=== PATIENT | male | born 1970 | race Caucasian/White ===

== ENCOUNTER 2017-11-11 09:41 | Emergency (ER) | payer OTHER ==
[~2017-11-11] VITALS: Ht 177.8 cm; Wt 136.1 kg
[~2017-11-11 09:41] MED LIST: ALPR.25; Allegra-D 24 H1 EACH PO; BUSP5 PO; CIPR500 PO; CLON1 PO; CRUTCH4 USE; CYCL10 PO; Flonase 0.05% N16 GM; HYDACE5 PO; IBUP400 PO; LISI5 PO; METR500 PO; Percocet 5-3251 EACH PO; QUET100 PO; QUET200; RXHYDACE PO; Robaxin500 MG PO; SERT50 PO; TELM40 PO; TRAM50 PO
[2017-11-11] MEDS ORDERED: LISI5 PO (11:40)
[2017-11-11] MEDS ORDERED: Seroquel100 MG PO (11:40)
[2017-11-11] MEDS ORDERED: DULO60 PO (11:40)
[2017-11-11] MEDS ORDERED: ALPR.25 PO (11:41)
[2017-11-11] MEDS ORDERED: PROP10 PO (11:42)
[2017-11-11 12:46] LABS: BASOPHILS ABSOLUTE AUTO 0.05 K/mm3 (0.00-0.23); BASOPHILS PERCENT AUTO 1 % (0-2); EOSINOPHILS ABSOLUTE AUTO 0.12 K/mm3 (0.00-0.68); EOSINOPHILS PERCENT AUTO 2 % (0-6); Hemoglobin 11.1 g/dL (13.5-17.5); IMMATURE GRAN ABSOLUTE AUTO 0.02 K/mm3 (0.00-0.10); IMMATURE GRAN PERCENT AUTO 0 % (0-1); LYMPHOCYTES PERCENT AUTO 24 % (21-46); MONOCYTES ABSOLUTE AUTO 0.82 K/mm3 (0.16-1.47); MONOCYTES PERCENT AUTO 10 % (4-13); Mean Corpuscular HGB 26.1 pg (26.0-34.0); Mean Corpuscular HGB Conc 31.7 g/dL (31.5-36.5); Mean Corpuscular Volume 82 fL (80-100); Mean Platelet Volume 9.7 fL (9.1-12.4); NEUTROPHILS ABSOLUTE AUTO 5.09 K/mm3 (1.96-9.15); NEUTROPHILS PERCENT AUTO 64 % (41-73); Platelet Count 240 K/mm3 (150-400); RDW Coefficient Variation 14.9 % (11.7-14.2); Red Blood Cell Count 4.26 M/mm3 (4.30-5.90)
[2017-11-11 13:13] LABS: Alanine Aminotransfer (ALT/SGP 67 U/L (12-78); Albumin, Blood 3.4 g/dL (3.4-5.0); Albumin/Globulin Ratio 0.8 (0.8-1.8); Alk Phos 79 U/L (50-136); Anion Gap 5 mmol/L (6-16); Aspartate Aminotrans (AST/SGOT 66 U/L (12-37); Bilirubin, Total 0.5 mg/dL (0.1-1.0); Blood Urea Nitrogen 13 mg/dL (8-24); Bun/Creatinine Ratio 10.1 (12.0-20.0); CO2, Blood 30 mmol/L (21-32); Calcium, Blood 8.7 mg/dL (8.5-10.1); Chloride, Blood 103 mmol/L (98-108); Creatinine, Blood 1.29 mg/dL (0.60-1.20); Globulin, Blood 4.3 g/dL (2.2-4.0); Glomerular Filtration Rate >60 (60-); Glucose, Blood 91 mg/dL (70-99); Potassium, Blood 3.7 mmol/L (3.5-5.5); Sodium, Blood 138 mmol/L (136-145); Total Protein, Blood 7.7 g/dL (6.4-8.2)
[2017-11-11] MEDS ORDERED: Norco 5-325 Ta1 EACH PO (14:40)
[2017-11-11] MEDS ORDERED: HYDACE25S PR (14:40)
[2017-11-11] MEDS ORDERED: Zofran Odt4 MG SL (14:40)
== END 2017-11-11 14:57 | disposition home or self-care (01) ==
LOC: ER 09:41
PROVIDERS: Emergency Medicine
DX: K64.9 Unspecified hemorrhoids (principal); K57.30 Diverticulosis of large intestine without perforation or abscess without bleeding; F41.9 Anxiety disorder, unspecified; I10 Essential (primary) hypertension; F17.290 Nicotine dependence, other tobacco product, uncomplicated; Z88.8 Allergy status to other drugs, medicaments and biological substances; Z79.899 Other long term (current) drug therapy
CPT/HCPCS: 36415; 74177; 80053; 85025; 96361; 96374; 96375; 99283-25; J2405; J3010; J7030; Q9967

== ENCOUNTER 2019-05-27 00:34 | Inpatient (IN) | payer OTHER ==
[~2019-05-27] VITALS: Ht 175.3 cm; Wt 122.2 kg
[~2019-05-27 00:34] MED LIST changes: +ALPR.25 PO; +CHLO25B; +DULO60 PO; +HYDACE25S PR; +Norco 5-325 Ta1 EACH PO; +PROP10 PO; +Seroquel100 MG PO; +Zofran Odt4 MG SL
[2019-05-27 00:51] LABS: BASOPHILS ABSOLUTE AUTO 0.06 K/mm3 (0.00-0.23); BASOPHILS PERCENT AUTO 1 % (0-2); EOSINOPHILS ABSOLUTE AUTO 0.17 K/mm3 (0.00-0.68); EOSINOPHILS PERCENT AUTO 2 % (0-6); Hematocrit 35.8 % (37.0-53.0); Hemoglobin 11.1 g/dL (13.5-17.5); IMMATURE GRAN ABSOLUTE AUTO 0.03 K/mm3 (0.00-0.10); IMMATURE GRAN PERCENT AUTO 0 % (0-1); LYMPHOCYTES ABSOLUTE AUTO 2.15 K/mm3 (0.84-5.20); LYMPHOCYTES PERCENT AUTO 20 % (21-46); MONOCYTES ABSOLUTE AUTO 0.84 K/mm3 (0.16-1.47); MONOCYTES PERCENT AUTO 8 % (4-13); Mean Corpuscular HGB 25.6 pg (26.0-34.0); Mean Corpuscular Volume 83 fL (80-100); Mean Platelet Volume 9.9 fL (9.1-12.4); NEUTROPHILS PERCENT AUTO 69 % (41-73); Platelet Count 282 K/mm3 (150-400); RDW Coefficient Variation 14.9 % (11.7-14.2); RDW Standard Deviation 45.3 fL (35.1-46.3); Red Blood Cell Count 4.34 M/mm3 (4.30-5.90); White Blood Cell Count 10.55 K/mm3 (4.00-11.30)
[2019-05-27 01:11] LABS: Alanine Aminotransfer (ALT/SGP 14 U/L (12-78); Albumin/Globulin Ratio 0.9 (0.8-1.8); Alk Phos 66 U/L (50-136); Anion Gap 5 mmol/L (6-16); Aspartate Aminotrans (AST/SGOT 10 U/L (12-37); Bilirubin, Total 0.3 mg/dL (0.1-1.0); Blood Urea Nitrogen 12 mg/dL (8-24); CO2, Blood 27 mmol/L (21-32); Calcium, Blood 8.1 mg/dL (8.5-10.1); Chloride, Blood 110 mmol/L (98-108); Ethanol (Alcohol), Blood, Med <3 mg/dL; Globulin, Blood 3.4 g/dL (2.2-4.0); Glomerular Filtration Rate >60 (60-); Glucose, Blood 139 mg/dL (70-99); Potassium, Blood 3.6 mmol/L (3.5-5.5); Salicylate <1.7 mg/dL (2.8-20.0); Sodium, Blood 142 mmol/L (136-145); Thyroxine (T4) 6.8 ug/dL (4.5-12.1); Total Protein, Blood 6.4 g/dL (6.4-8.2)
[2019-05-27 01:30] LABS: Acetaminophen, Random <2.0 ug/mL (10.0-30.0)
--- NOTE | 2019-05-27 04:00 | NUR ---
ASSUME CARE: ADMIT 48 YEAR OLD MALE TO ICU [address] LUCHO LOVE VIA ER. TRANSFER PT TO BED USING SLIDER SHEET. LUNGS CLEAR UPPER LOBES DISTANT SOUNDS IN THE BASES SNORING RESPIRATIONS SPO2 95-98% ABDOMEN SOFT WITH BOWEL SOUNDS FOUR QUADS. ATTEMPT TO VOID. URINAL PLACED UNSUCCESSFUL ATTEMPTS. CONTINUE TO MONITOR AND REPORT CHANGE IN PATIENT CONDITION
--- NOTE | 2019-05-27 04:16 | NUR ---
WHENAROOUSED WITH STERNAL RUB AND ASKED IF STILL WANTING TO HARM SELF SCREAMS NO INFORMED PT OF NEED TO ANSWER QUESTIONS FOR ADMIT SCREAMS" NO DAMMIT I SAID NO" RETURNS TO SLEEP IMMEDIATLY. REFUSES TO RESPOND VERBALY AFTER SEVERAL ATTEMPTS TO AROUSE WITH STERNAL RUB. UNABLE TO STAY AWAKE TO ANSWER QUESTIONS,
[2019-05-27 04:33] LABS: Source, Urine Clean Catch
[2019-05-27 04:36] LABS: Bilirubin, Urine Neg (Neg); Blood, Urine Neg (Neg); Glucose Qualitative, Urine Neg (Neg); Ketones, Urine Neg (Neg); Leukocyte Esterase, Urine 1+ (Neg); Nitrite, Urine Neg (Neg); Protein, Urine Neg (Neg); Specific Gravity, Urine 1.005 (1.003-1.022); Urobilinogen, Urine NORM (Normal)
[2019-05-27 04:39] LABS: Appearance, Urine Clear (Clear); Color, Urine Yellow (P-Yellow)
[2019-05-27 04:44] LABS: Bacteria Mod /hpf; Mucus Light (0-Heavy); Red Blood Cells, Urine 0-2 /hpf (0-2); Squamous Epithelial Cells Mod /hpf (Few)
[2019-05-27 04:50] LABS: U Amphetamine Screen DETECTED; U Barbituate Screen Not Detected; U Benzodiazapine Screen DETECTED; U Buprenorphine Screen Not Detected; U Cannabinoids Screen Not Detected; U Cocaine Screen Not Detected; U Methadone Screen Not Detected; U Methamphetamine Screen DETECTED; U Opiates Screen Not Detected; U Phencyclidine Screen Not Detected
[2019-05-27 04:51] LABS: U Oxycodone Screen Not Detected; U Propoxyphene Screen Not Detected
--- NOTE | 2019-05-27 07:15 | NUR ---
ASSUMED CARE - VINEET WU Assumed care of pt at 0700. Pt in high risk suicide precautions. Pauline/New BAL in room at beginning of shift. Pt got out of bed, agitated and irritable. Stated he had to use "the bathroom". This RN in room to assist pt to commode. Pt not following any directions due to concrete mentation and agitation. Pt not safely mobilizing around room, unsteady gait. Pt pulls off heart monitor leads and continuous oximeter. Pulls out IV from arm. Unreceptive to verbal reorientation. Pt escalating and not allowing staff to safely assist pt to use commode. Vineet wu called. Pt voided urine into comode and led back to bed by security.
--- NOTE | 2019-05-27 08:00 | NUR ---
SUICIDE REASSESSMENT Unable to complete. Pt is not alert enough for reassessment at this time. When pt awakens, pt does not follow commands and does not answer all questions appropriately. Pt agitated and not cooperative. Will continue to reassess.
--- NOTE | 2019-05-27 08:30 | NUR ---
CALL PLACED TO DR SANTILLAN Provider notified of aaron wu. Provider aware that pt is now in TAT cuffs to all extremities due to impulsive actions, fall risk, not following directions. Will continue to reassess need for restraints.
[2019-05-27 09:33] LABS: Alanine Aminotransfer (ALT/SGP 12 U/L (12-78); Albumin, Blood 2.9 g/dL (3.4-5.0); Albumin/Globulin Ratio 0.8 (0.8-1.8); Alk Phos 72 U/L (50-136); Anion Gap 4 mmol/L (6-16); Aspartate Aminotrans (AST/SGOT 7 U/L (12-37); Bilirubin, Total 0.6 mg/dL (0.1-1.0); Blood Urea Nitrogen 9 mg/dL (8-24); Bun/Creatinine Ratio 9.4 (12.0-20.0); CO2, Blood 28 mmol/L (21-32); Calcium, Blood 8.9 mg/dL (8.5-10.1); Chloride, Blood 110 mmol/L (98-108); Creatinine, Blood 0.96 mg/dL (0.60-1.20); Globulin, Blood 3.6 g/dL (2.2-4.0); Glomerular Filtration Rate >60 (60-); Glucose, Blood 119 mg/dL (70-99); Sodium, Blood 142 mmol/L (136-145); Total Protein, Blood 6.5 g/dL (6.4-8.2)
--- NOTE | 2019-05-27 11:15 | NUR ---
DR SANTILLAN AT BEDSIDE Provider aware that pt is NPO due to mentation. Provider gave pt sips of water through a straw. Provider stated pt did not show signs of aspiration. Provider states pt may have sips of water if HOB is maximally elevated. Pt stated pt may not have anything other than water.
--- NOTE | 2019-05-27 12:30 | NUR ---
UPDATE GIVEN TO PORSCHE Russellidi called unit for update. Identity verified using called ID and phone number on face sheet. Questions answered to pt satisfaction. requested that Dr Meeks calls her after he sees the patient.
--- NOTE | 2019-05-27 12:55 | NUR ---
Unable to adress Safety Plan at this time due to Patient asleep and in restraints. RN informed will check back tomorrow
--- NOTE | 2019-05-27 18:18 | NUR ---
SUMMARY Pt alert, oriented to self. Upon awakening, pt often asks, "where am I". When pt awakens, his priority is voiding urine. He does not follow directions consistently. He is often agitated and yells/cusses at staff. He does not answer questions consistently. Pt does not stay awake for more than one or two minutes at a time. Pt in TAT x 4 extremities restraints for majority of shift. At 1800, restraints from bilateral ankles removed. Pt verbalizes desire for restraints to be removed. Pt verbalizes understanding that behavioral issues are a barrier to complete restraint removal at this time. SpO2 90% or greater RA. Sinus bradycardia to sinus rhythm. BP stable. Pt voids urine into urinal. No incontinent voids of urine this shift. No BM this shift. Pt remains in high risk suicide precautions with 1:1 sitter and remote monitoring. Pt unable to participate with behavioral health due to somnolence. Behavioral health states plan to revisit patient tomorrow.
--- NOTE | 2019-05-27 19:15 | NUR ---
ASSUME CARE; REPORT RECIEVED FROM [facility] OFF GOING RN. MONITOR INTACT SHOWING SINUS RHYTHM/SINUS BENJAMIN HEART RATE 50'S-60'S. LUNG SOUNDS CLEAR UPPER DISTANT IN THE BASES. ABDOMEN SOFT WITH BOWEL SOUNDS FOUR QUADS. VOIDS KIANA URINE PER URINAL. ONT TO ONE SITTER PRESENT SECONDARY TO JOSE RISK SUCIUDE IDEATION . REST QUIETLY AWAKENS BRIEFLY TO VERBAL STIMULI HOWEVER FALLS ASLEEP IMMEDIATLY FREQUENT REQUEST FOR WATER HOWEVER RETURNS TO SLEEP BEFOR WATER CAN BE OFFERED. REMAINS IN TAT WRIST RESTRAINTS. WHEN AWAKE YELLS AND CURSES AT STAFF. NOT COOPERATIVE TO CARES. XONTINUE TO MONITOR AND REPORT CHANGE IN PATIENT CONDITION
--- NOTE | 2019-05-27 20:00 | NUR ---
AROUSES TO VERBAL AND TACTILE STIMULI ANSWERSNNO TO QUEST HOWEVER ADD'this is bullshit and RETURNS TO SLEEP IMMEDIATLY. DPEES NOT FOLLOW DIRECTIONS OR IS ABLE TO STAY AWAKE/ CONTINUE TO MONITOR AND REPORT CHANGE IN PATIEENT CONDITION
--- NOTE | 2019-05-27 21:30 | NUR ---
INCREASING AGITATION. AWAKENS SCREAMING AND CURSING AT STAFF. REQUESTING DRINK OF WATER. ATTEMPTING TO KICK AT STAFF. SECURITY NOTIFIED FOR STANDBY AND TO COME TO BEDSIDE. PT CONTINUES TO ESCALATE ATTEMPTING TO KICK AND CURSE AT STAFF. PLACED IN TAT ANKLE RESTRAINTS, TO KEEP FROM HARMING SELF REMAINS CONFUSED NOT FOLLOWING REQUESTS. ONE TO ONE SITTER REMAINS FALLS ASLEEP AFTER RESTRAINTS PLACED. DOES NOT REMAIN AWAKE FOR MORE THAN 15 MINUTES. CONTINUE TO MONINTOR AND REPORT CHANGE IN PATIENET CONDITION
--- NOTE | 2019-05-28 06:15 | NUR ---
SHIFT SUMMARY RESTS QUIETLY WHEN UNDISTURBED MONITOR INTACT SHOWING SINUS RHYTHM HEART RATE 60'S-70'S. AWAKENS SUDDENLY WHEN NEEDS TO VOID. YELLS AND CURSES AT STAFF DEMANDING WATER AND RESTRAINTS REMMOVED. ONE TO ONE SITTER, ABDOMEN SOFT WITH BOWEL SOUNDS FOUR QUADS. VOIDS PER URINAL INCONTINENT ONCE THIS SHIFT. REMAINS IN TAT RESTRAINTS SECONDARY TO NOT FOLLOWING REQUEST INCREASING AGATITION REMAINS IN TAT 4 EXTREMITIES. CONTINUE TO MONITOR AND REPORT CHANGE IN PATIENT CONDITION.
--- NOTE | 2019-05-28 07:38 | NUR ---
Received report from Hooper. Patient awakened when assessing LW IV that is infusing LR at 150 ml/hr. He awakens ans started yelling and screaming about taking restarints off. he is un aware of time and date and how many days he has been hereHe is on RA and sats mid to upper 90's. He wears CPAP at home and has apnea when sleeping. He falls back to sleep quickly. He has sitter at door and is in tough cuffs as per last code wu. Will try to release as feel comfortable.
--- NOTE | 2019-05-28 10:28 | NUR ---
Took patient out of restraint briefly for trip to bathroom where he has small brown formed stool. He rem,ains on RA and sats mid 90%'s. HR 60 and systolic 80-110 and is asymptomatic. Katelyn from Behavioral Health by to see patient. He talked with her and started getting upset because his throat was sore and we did not get him medication immediatley. He was breifly upset when I told him to talk with respect to people instaed of yelling which made him more upset and I tlod him I was calling for throat medication. She left and he was sleeping when came back in room for medication. I asked he he was going to stay awake long enough for medication to work and he stated yes. He is drowsy and awakens very easily to verbal stimuli. He wants to be incontrol and is very agitated when he is not. He states he is not suicidal or has any thoughts of hurting himself or anyone else.
--- NOTE | 2019-05-28 11:22 | NUR ---
Interviewed patient to begin to prepare Suicide Sfety Plan. RN released an ankle restraint prior to the interview, pt remained in 1 ankle restraint during interview. Pt was cooperative but appeared to fall asleep at times. He reports he lost his job as [employer] due to "COVID", and his left him. He had stayed at "an empty apartment for the last week" He became tearful when talking about being "ashamed of how I treated my ". He did not go into detail. He was slow to anser questions, and would apper to fall asleep, then anser. He reports no preious suicid attemptes. for 7 years, and "on and off" since 1999". Has a 24 year old child". Denies alsohol and drug use. He complaained of his throat hurting. He yelled at RN when he entered for not helping him. Pt calmed down as he turned to speak to me. Reports no guns at home, and no previous treatment for mental illness. interview ended as pt fell asleep. Will return to complete Safety Plan. Katelyn Benites M.Ed., [facility]
--- NOTE | 2019-05-28 12:00 | NUR ---
Patient has been resting off and on. He has been appropriate with care but still withdrawn with care. He has refused am care. He has tolerated water without difficulty. He remains on RA and sats mid to upper 90%'s. He continues with LR at 150 ml/hr. Dr Frankel called and will be by to see him.
--- NOTE | 2019-05-28 13:15 | NUR ---
DR LINUFF HERE IN ROOM TO EVALUATE PATIENT.
--- NOTE | 2019-05-28 16:09 | NUR ---
he is now PCU status after Dr Easley came by to see him. Dr Forbes by and made Moderate risk. He continues to refuse am care. He has been up twice to use bathroom and is stable ambulating short distances. He was tearful when asking about talking with step daughter on phone and I passed a message off to him from seperated telling him that she hopes he is doing better and seeks help. He stated his " could kiss his ass" He has been out of restraints since noo on oder but started trail at 1100 and removed order. VSS See EMR. He remains on LR at 150 ml/hr.
--- NOTE | 2019-05-28 18:39 | NUR ---
Patient has been mostly sleeping. He denies suicdal idealations. He remains on RA and sats upper 90%'s. He is withdrawn and depressed after Dr Frankel had conversation and he understands that he may be here several more day and may start looking for place to commit short term, but patient states it was all a mistake, although he did video. He really wants to contact step daughter and i told him no phone calls yet and seperated stated she does not want him to call her. He is upset he is not allowed phone calls in or out. Last time he was up allowed him to have his underwear. He is currently sleeping and awakens easily to verbal stimuli. VSS. He continues on LR at 150 ml/hr.
--- NOTE | 2019-05-28 23:18 | NUR ---
START OF SHIFT NOTE: BEDSIDE REPORT FROM TWILA PITTMAN. PT AWAKNED EASILY AND WAS THANKFUL TO DAY RN. VSS. PT ON RA. LS CLEAR T/O. SATS REMAIN 99-100% ASLEEP OR AWAKE. PT USES CALL LIGHT APPROPRIATELY BUT IS TEARFUL WHEN AWAKE STATING, "I MISS MY ", AND "SHE LEFT US ALL FOR ANOTHER MAN", WHEN TOLD THAT CALLED AND WAS UPDATED, PT STATED, "GREAT, SHE CALLED FROM ANOTHER MAN'S HOME". PT WAS GIVEN OPORTUNITY TO [facility] AND [facility]. PT THEN, LAYED BACK INTO BED AND FELL ASLEEP. PT CURRENTLY STILL SLEEPING. VSS.
--- NOTE | 2019-05-29 03:10 | NUR ---
UPDATE: PT SLEEPING MOST OF NOC. VSS. PT AWAKENS EASILY TO RN AT BEDSIDE. PT REQUESTED COOKIES AND MILK BUT WAS HAPPY WITH APPLE JUICE. PT SPEECH CLEAR. PT PLEASANT AND APPRECIATIVE. WILL CONTINUE TO MONITOR.
--- NOTE | 2019-05-29 03:12 | NUR ---
PT REFUSING FINGER STICKS AND LAB DRAW A THIS TIME. PT STATED, "I DON'T WANT MY BLOOD TAKEN", "I DON'T WANT TO BE POKED". PT THEN ON SIDE AND FELL ASLEEP.
--- NOTE | 2019-05-29 04:40 | NUR ---
DR. BEASLEY NOTIFIED: PT 0400 VITALS C/ BP 60'S/40'S. 80'S/50'S AFTER 250 FLUID BOLUS CHALLENGE. SEE UPCOMING ORDERS.
[2019-05-29 08:09] LABS: BASOPHILS ABSOLUTE AUTO 0.03 K/mm3 (0.00-0.23); BASOPHILS PERCENT AUTO 0 % (0-2); EOSINOPHILS ABSOLUTE AUTO 0.15 K/mm3 (0.00-0.68); EOSINOPHILS PERCENT AUTO 2 % (0-6); Hematocrit 35.8 % (37.0-53.0); IMMATURE GRAN ABSOLUTE AUTO 0.01 K/mm3 (0.00-0.10); IMMATURE GRAN PERCENT AUTO 0 % (0-1); LYMPHOCYTES PERCENT AUTO 22 % (21-46); MONOCYTES ABSOLUTE AUTO 0.72 K/mm3 (0.16-1.47); MONOCYTES PERCENT AUTO 9 % (4-13); Mean Corpuscular HGB 25.1 pg (26.0-34.0); Mean Corpuscular HGB Conc 30.7 g/dL (31.5-36.5); Mean Corpuscular Volume 82 fL (80-100); Mean Platelet Volume 9.9 fL (9.1-12.4); NEUTROPHILS ABSOLUTE AUTO 5.24 K/mm3 (1.96-9.15); NEUTROPHILS PERCENT AUTO 67 % (41-73); Platelet Count 240 K/mm3 (150-400); RDW Coefficient Variation 14.7 % (11.7-14.2); RDW Standard Deviation 43.8 fL (35.1-46.3); Red Blood Cell Count 4.38 M/mm3 (4.30-5.90); White Blood Cell Count 7.85 K/mm3 (4.00-11.30)
--- NOTE | 2019-05-29 08:14 | NUR ---
Received report from Estela PITTMAN. patient stated earlier he did not want labs or meds. I went in room as he asked a question about how long he was going to be here and I explained up to 7 days from admission as he was on a 2 doctor hold and explained again what that was. He statrted to get loud and I calmed him down and told him he could tell his side to Dr Frankel and see what he thinks about when and if he can be discharged and when he can call his family. He remains on RA and sats upper 90%'s VSS, See EMR. I called Dr Easley and asked is he could be off monitor as patient was getting tangled in lines and had to awaken to fix frequently. He stated OK to be off monitor and VS Q4. Lab came by and talked him in to having labs do so that they may be able to treat him better and he agreed. He also stated that he would try breakfast. He apoligized for being ans"asshole " yesterday and I told him it was OK as long as he was feeling better. he denies any suicidal idealations or thoughts of hurting anyone else and hestated "NO".
[2019-05-29 08:26] LABS: Alanine Aminotransfer (ALT/SGP 12 U/L (12-78); Albumin, Blood 2.8 g/dL (3.4-5.0); Albumin/Globulin Ratio 0.8 (0.8-1.8); Alk Phos 74 U/L (50-136); Anion Gap 5 mmol/L (6-16); Aspartate Aminotrans (AST/SGOT 7 U/L (12-37); Bilirubin, Total 0.7 mg/dL (0.1-1.0); Blood Urea Nitrogen 10 mg/dL (8-24); Bun/Creatinine Ratio 8.3 (12.0-20.0); CO2, Blood 28 mmol/L (21-32); Calcium, Blood 8.9 mg/dL (8.5-10.1); Chloride, Blood 109 mmol/L (98-108); Creatinine, Blood 1.21 mg/dL (0.60-1.20); Globulin, Blood 3.4 g/dL (2.2-4.0); Glomerular Filtration Rate >60 (60-); Glucose, Blood 93 mg/dL (70-99); Potassium, Blood 3.1 mmol/L (3.5-5.5); Sodium, Blood 142 mmol/L (136-145); Total Protein, Blood 6.2 g/dL (6.4-8.2)
--- NOTE | 2019-05-29 09:48 | NUR ---
Placed breakfast at bedside and patient stated he will try to eat. Comapss in room currently, behavior Health by and stated she will be back to see him. He has been cooperative with care. He refused Lovenox this am. He remains off monitor and is PCU status.
--- NOTE | 2019-05-29 12:16 | NUR ---
Safety Plan complete today. Pt states he is "over it" now, and does not want to kill himself. He says he is bipolar, and was Manic when he took the OD. He states he has appontments with his PCP, Rachel, that diagnosed him with Bipolar, and an appoinment with [facility] at [facility]. He has friends in [facility] [place], and states he may move there at some point.
--- NOTE | 2019-05-29 14:54 | NUR ---
Katelyn PITTMAN was by to see patient and he was calm throughout process and latewr Dr Frankel was by and patient became very frustrated when he was told he was going to have to stay. I went in room shortly after and had talk with patient and he became calm. We got permission for him to call and she called back about 20 minutes later and he talked for about 30 minutes and was very calm afterwards. He has been very cooperative and has full understanding of his current consequences. VSS. Sats 98% on RA.
--- NOTE | 2019-05-29 17:38 | NUR ---
PT TRANSFERED PT TRANSFERED TO 344. REPORT RECIEVED FROM TWILA FORREST RN. THIS RN COMFIRMED WITH REMOT MONITORS THAT PT IS CLEARLY VIEWED. PT CURRENTLY IN ROOM TALKING TO HIS FRIEND ON THE PHONE. SI ENVIRONMENT ASSESSMENT COMPLETED. PT STATES HE IS COMFORTABLE AT THIS TIME. AND DENIES ANY NEED AT THIS TIME. WILL CONTINUE TO MONITOR UNTIL TURNOVER IS COMPLETE.
--- NOTE | 2019-05-29 17:41 | NUR ---
Gave report to [facility] 344 RN . Patient transfered to wheelchair and was taken to room. He was pleasant and cooperative on transfer and thanked me for care/ All his belongings, cloths, keys, watch and he carried cell phone. He ambulated from chair to bed and [facility] floor nurse and aid introduced themselves. He transfered on RA without difficulty.
--- NOTE | 2019-05-30 04:11 | NUR ---
SHIFT SUMMARY PT HAS HAD NO ACUTE CHANGES THIS SHIFT, A&O, PLEASANT & COOPERATIVE W/CARE, CELL PHONE PLUGGD IN AT DESK FOR THE NIGHT, ASSURED PT IT WLD BE RETURNED IN AM, PT UNABLE TO TOLERATE KCL INFUSION AND REFUSED TO ALLOW RN TO ADJUST CONCURRENT DRIP (STATED HE WANTED IV OUT), CALLED MD & REC PO ORDER, PT APPEARS COMFORTABLE @ THIS TIME, NO OTHER C/O ANY KIND, CALL LIGHT IN REACH, WILL CONT TO MONITOR UNTIL REPORT GIVEN TO DAY RN.
[2019-05-30 05:11] LABS: Anion Gap 6 mmol/L (6-16); Blood Urea Nitrogen 15 mg/dL (8-24); CO2, Blood 27 mmol/L (21-32); Chloride, Blood 109 mmol/L (98-108); Creatinine, Blood 1.25 mg/dL (0.60-1.20); Glomerular Filtration Rate >60 (60-); Glucose, Blood 105 mg/dL (70-99); Potassium, Blood 3.3 mmol/L (3.5-5.5); Sodium, Blood 142 mmol/L (136-145)
--- NOTE | 2019-05-30 07:30 | NUR ---
VERIFIED REMOTE MONITORING THIS RN VERIFIED WITH REMOTE MONITOR SUSY THAT CAMERA IS ON.
--- NOTE | 2019-05-30 13:00 | NUR ---
PATIENT REQUESTED FOR HOUSE FORTE, CAR FORTE, AND FORTE FOB TO BE SENT DOWN FOR PRINCIPAL PLANNER BY HIS DAUGHTER.
--- NOTE | 2019-05-30 16:22 | NUR ---
Shift Summary A/Ox4, compliant with all safety precautions in place. Patient had a supervised shower and bathroom breaks. SBP remains in the 90's. Patient denies symptoms of hypotension (blurry vision, dizziness, lightheadedness). Independent with ADL's and uses call light appropriately. When in the shower, this RN could hear patient mumbling to himself, but could not make out what patient was mumbling. Patient continues to deny suicidal ideations or any plans for such action. Has been on the phone frequently t/o day with friends and . No signs of agitation or agression noted. Will continue to monitor.
--- NOTE | 2019-05-30 19:06 | NUR ---
HOUSE AND CAR FORTE ALONG WITH FORTE FOB ARE BACK IN PATIENT'S ROOM.
--- NOTE | 2019-05-31 05:07 | NUR ---
SHIFT SUMMARY PT HAS HAD NO ACUTE CHANGES THIS SHIFT, NO C/O ANY KIND, SBP ABOVE 100 THIS SHIFT, PT HAS BEEN APPROPIATE & COOPERATIVE W/CARE, SLEPT T/O NIGHT, SLEEPING AT THIS TIME, CALL LIGHT IN REACH, WILL CONT TO MONITOR UNTIL REPORT GIVEN TO DAY RN.
[2019-05-31 05:11] LABS: Alanine Aminotransfer (ALT/SGP 13 U/L (12-78); Albumin/Globulin Ratio 0.8 (0.8-1.8); Alk Phos 71 U/L (50-136); Anion Gap 5 mmol/L (6-16); Aspartate Aminotrans (AST/SGOT 11 U/L (12-37); Bilirubin, Total 0.4 mg/dL (0.1-1.0); Blood Urea Nitrogen 10 mg/dL (8-24); Bun/Creatinine Ratio 9.4 (12.0-20.0); CO2, Blood 26 mmol/L (21-32); Calcium, Blood 8.9 mg/dL (8.5-10.1); Chloride, Blood 111 mmol/L (98-108); Creatinine, Blood 1.06 mg/dL (0.60-1.20); Globulin, Blood 3.8 g/dL (2.2-4.0); Glomerular Filtration Rate >60 (60-); Glucose, Blood 123 mg/dL (70-99); Potassium, Blood 3.6 mmol/L (3.5-5.5); Sodium, Blood 142 mmol/L (136-145); Total Protein, Blood 6.8 g/dL (6.4-8.2)
--- NOTE | 2019-05-31 07:00 | NUR ---
REMOTE MONITOR VERIFIED WITH PITO THAT REMOTE MONITORING IS ON FOR THIS PATIENT.
--- NOTE | 2019-05-31 08:08 | NUR ---
PATIENT STARTED MORNING OFF FEELING IRRITATED STATING HE WANTS TO GO HOME BECAUSE HIS BP IS IMPROVING AND HE KNOWS HE "FUCKED UP" WITH WHAT HE DID. "THE WORLD IS GOING AND I'M STUCK IN HERE."
--- NOTE | 2019-05-31 08:12 | NUR ---
PATIENT DENIES HAVING ANY PLANS TO KILL HIMSELF OR ANY SUICIDAL THOUGHTS.
[2019-05-31] MEDS ORDERED: CHLO50 PO (14:42)
--- NOTE | 2019-05-31 14:54 | NUR ---
Discharge Summary A/Ox4, patient discharging to home. Reviewed discharge paperwork and educational materials with patient. This RN stressed the importance of staying away from illicit drugs per Jostin's order. Discharge med was called in to [facility] pharmacy. [facility] ran out of [facility] so they will forward prescription to another pharmacy and call patient with updates. Personal belongings sent home, patient transported by daughter and escorted out by SALES DEVELOPMENT EXECUTIVE. Patient did not have any questions at this time.
== END 2019-05-31 15:02 | disposition home or self-care (01) | DRG 917 ==
LOC: ER 00:34 → ICUW 00:35 → MEDS 05-29 17:35
PROVIDERS: Emergency Medicine; Internal Medicine; ADMIT Internal Medicine
DX: T42.4X2A Poisoning by benzodiazepines, intentional self-harm, initial encounter (principal); G92 Toxic encephalopathy; F32.3 Major depressive disorder, single episode, severe with psychotic features; F19.90 Other psychoactive substance use, unspecified, uncomplicated; I10 Essential (primary) hypertension; I95.89 Other hypotension; F41.9 Anxiety disorder, unspecified; E87.6 Hypokalemia; G47.30 Sleep apnea, unspecified; I95.9 Hypotension, unspecified; F17.290 Nicotine dependence, other tobacco product, uncomplicated
CPT/HCPCS: 36415; 80048; 80053; 81001; 84436; 85025; 87086; 93005; 93010; 96361; 96372; 96374; 96375; 99285-25; C9113; G0378; G0480; J1650; J2310; J3480; J7030; J7040; J7120

== ENCOUNTER 2019-06-23 05:36 | Inpatient (IN) | payer OTHER ==
[~2019-06-23] VITALS: Ht 185.4 cm; Wt 121.6 kg
[~2019-06-23 05:36] MED LIST changes: +CHLO50 PO
[2019-06-23 05:58] LABS: BASOPHILS ABSOLUTE AUTO 0.06 K/mm3 (0.00-0.23); BASOPHILS PERCENT AUTO 1 % (0-2); EOSINOPHILS ABSOLUTE AUTO 0.13 K/mm3 (0.00-0.68); EOSINOPHILS PERCENT AUTO 2 % (0-6); Hematocrit 34.9 % (37.0-53.0); Hemoglobin 10.9 g/dL (13.5-17.5); IMMATURE GRAN ABSOLUTE AUTO 0.08 K/mm3 (0.00-0.10); IMMATURE GRAN PERCENT AUTO 1 % (0-1); LYMPHOCYTES ABSOLUTE AUTO 1.76 K/mm3 (0.84-5.20); LYMPHOCYTES PERCENT AUTO 21 % (21-46); MONOCYTES ABSOLUTE AUTO 0.59 K/mm3 (0.16-1.47); MONOCYTES PERCENT AUTO 7 % (4-13); Mean Corpuscular HGB 24.8 pg (26.0-34.0); Mean Corpuscular HGB Conc 31.2 g/dL (31.5-36.5); Mean Corpuscular Volume 79 fL (80-100); Mean Platelet Volume 9.3 fL (9.1-12.4); NEUTROPHILS ABSOLUTE AUTO 5.95 K/mm3 (1.96-9.15); NEUTROPHILS PERCENT AUTO 70 % (41-73); Platelet Count 276 K/mm3 (150-400); RDW Coefficient Variation 14.4 % (11.7-14.2); RDW Standard Deviation 41.2 fL (35.1-46.3); White Blood Cell Count 8.57 K/mm3 (4.00-11.30)
[2019-06-23 06:13] LABS: Acetaminophen, Random <2.0 ug/mL (10.0-30.0); Alanine Aminotransfer (ALT/SGP 12 U/L (12-78); Albumin, Blood 3.1 g/dL (3.4-5.0); Albumin/Globulin Ratio 0.8 (0.8-1.8); Alk Phos 84 U/L (50-136); Anion Gap 9 mmol/L (6-16); Aspartate Aminotrans (AST/SGOT 8 U/L (12-37); Bilirubin, Total 0.4 mg/dL (0.1-1.0); Blood Urea Nitrogen 8 mg/dL (8-24); Bun/Creatinine Ratio 7.9 (12.0-20.0); CO2, Blood 24 mmol/L (21-32); Calcium, Blood 8.8 mg/dL (8.5-10.1); Chloride, Blood 110 mmol/L (98-108); Creatinine, Blood 1.01 mg/dL (0.60-1.20); Ethanol (Alcohol), Blood, Med <3 mg/dL; Globulin, Blood 3.7 g/dL (2.2-4.0); Glomerular Filtration Rate >60 (60-); Glucose, Blood 127 mg/dL (70-99); Potassium, Blood 3.2 mmol/L (3.5-5.5); Salicylate <1.7 mg/dL (2.8-20.0); Sodium, Blood 143 mmol/L (136-145); Total Protein, Blood 6.8 g/dL (6.4-8.2)
--- NOTE | 2019-06-23 08:34 | NUR ---
PT ADMITTED TO ICU AT 0820 FOR INTENTIONAL OD ON SEROQUEL AND BP MEDS. PT LETHARGIC. WHEN AROUSES PT IRRITABLE, ANGRY, YELLS, AND USES PROFANITY. PT IS UNCORDINATED WITH SLURRED SPEECH. PT IS ORIENTED, DENIES FEELING SUICIDAL. PT YELLS DEMANDS AT STAFF THEN QUICKLY FALLS BACK TO SLEEP. PT HEART RATE IN 60'S. SATS 97% ON RA, LUNGS CLEAR. PT HYPOTENSIVE W BP TRENDING DOWN, PT MAY REQUIRE LINE AND PRESSORS. ALL ITEMS REMOVED FROM ROOM. CAMERA ON, SITTER TO BE AT BEDSIDE SHORTLY. WILL CALL HOSP REGARDING BP.
--- NOTE | 2019-06-23 08:47 | NUR ---
DR YANG CALLED AND GIVEN FULL UPDATE. PICC LINE TO BE PLACED.
--- NOTE | 2019-06-23 10:46 | NUR ---
DR HOPKINS IS PT'S PROVIDER PT IS FROM [place]. DR HOPKINS CALLED AND GIVEN UPDATE AND WAS IN UNIT TO SEE PT SHORTLY AFTER. NS BOLUS (3RD LITER) STARTED FOR HYPOTENSION 70/38. PICC ORDERED, PT AGREES TO PICC. PICC PLACED TO LAMAR W/O DIFFICULTY. LEVOPHED STARTED AND TITRATED UP TO 12MCG OVER 10MIN TO KEEP UP MAP>65. PT CONT TO BE VOLATILE WITH IMPULSIVE AND SOMEWHAT EXPLOSIVE MOVEMENT WHEN AROUSED. PT CONT TO USE PROFANITY AND YELL WHEN AWAKE. HEART RATE IN 50'S. 1:1 SITTER AT BEDSIDE. 2MD HOLD INITIATED 02 PLACED AT 2L PT HAS PERIODS OF SLEEP APNEA.
[2019-06-23 11:00] LABS: Alanine Aminotransfer (ALT/SGP 12 U/L (12-78); Albumin, Blood 2.6 g/dL (3.4-5.0); Albumin/Globulin Ratio 0.8 (0.8-1.8); Alk Phos 71 U/L (50-136); Anion Gap 7 mmol/L (6-16); Aspartate Aminotrans (AST/SGOT 5 U/L (12-37); Bilirubin, Total 0.5 mg/dL (0.1-1.0); Blood Urea Nitrogen 8 mg/dL (8-24); Bun/Creatinine Ratio 8.8 (12.0-20.0); CO2, Blood 24 mmol/L (21-32); Calcium, Blood 7.7 mg/dL (8.5-10.1); Chloride, Blood 108 mmol/L (98-108); Creatinine, Blood 0.91 mg/dL (0.60-1.20); Globulin, Blood 3.2 g/dL (2.2-4.0); Glomerular Filtration Rate >60 (60-); Glucose, Blood 244 mg/dL (70-99); Potassium, Blood 3.8 mmol/L (3.5-5.5); Sodium, Blood 139 mmol/L (136-145); Total Protein, Blood 5.8 g/dL (6.4-8.2)
--- NOTE | 2019-06-23 11:47 | NUR ---
1100-PT REQUESTED THE NEED TO URINATE IN SLURRED WORDS. THEN QUICKY GOT ON ALL FOURS TRYING TO JUMP OUT OF BED AND WILDLY RIPING OFF LEADS AND ATTEMPTED TO PULL OUT PICC. VINEET CABAN CALLED, PT PLACED IN TUFF CUFFS X4 EXT. PT FELL BACK TO SLEEP AFTER RESTRAINTS PLACED. DR HOPKINS AT BEDSIDE. ORDERS TO PLACE SALCIDO. PT TOLERATED SALCIDO PLACEMET WELL; UROJET USED. 1700CC TO SALCIDO BAG. LEVOPHED DECREASED TO 10MCG, NS STARTED AT 175/HR.
[2019-06-23 12:45] LABS: Source, Urine Clean Catch
[2019-06-23 12:49] LABS: Bilirubin, Urine Neg (Neg); Blood, Urine Neg (Neg); Glucose Qualitative, Urine Neg (Neg); Ketones, Urine Neg (Neg); Leukocyte Esterase, Urine Neg (Neg); Nitrite, Urine Neg (Neg); Protein, Urine Neg (Neg); Specific Gravity, Urine 1.005 (1.003-1.022); Urobilinogen, Urine NORM (Normal)
[2019-06-23 12:50] LABS: Appearance, Urine Clear (Clear); Color, Urine Yellow (P-Yellow)
[2019-06-23 13:03] LABS: U Amphetamine Screen DETECTED; U Methamphetamine Screen DETECTED
[2019-06-23 13:04] LABS: U Barbituate Screen Not Detected; U Benzodiazapine Screen Not Detected; U Buprenorphine Screen Not Detected; U Cannabinoids Screen Not Detected; U Cocaine Screen Not Detected; U Methadone Screen Not Detected; U Opiates Screen Not Detected; U Oxycodone Screen Not Detected; U Phencyclidine Screen Not Detected; U Propoxyphene Screen Not Detected
--- NOTE | 2019-06-23 13:16 | NUR ---
PT SLEEPING RESTFULLY. LEVOPHED DECRESED TO 8MCG, PT'S MAP REMAINS >65.
--- NOTE | 2019-06-23 13:20 | NUR ---
PT'S URINE TOX POS FOR METH AND AMPHETAMINE'S, DR HOPKINS NOTIFIIED.
--- NOTE | 2019-06-23 13:40 | NUR ---
UPDATE X2 GIVEN TO POISON CONTROL.
[2019-06-23] MEDS ORDERED: CHLO25B PO (13:54)
[2019-06-23] MEDS ORDERED: LISI20 PO (13:55)
[2019-06-23] MEDS ORDERED: GABA300 PO (13:55)
--- NOTE | 2019-06-23 17:00 | NUR ---
PT SLEEPING VERY SOMULENT, APPEARS RESTFUL. LEVOPHED DECREASED TO 5MCG, MAPS >65. PT PUT OUT OVER 3L THIS SHIFT IN URINE. PT AROUSES TO A LIGHT SHAKE, ABLE TO ANSWER SOME QUESTIONS THEN FALLS QUICKLY BACK TO SLEEP. ANKLE RESTRAINTS REMOVED. WRIST RESTRAINTS LEFT ON PT'S BEHAVIOR HAS BEEN VERY LABILE AND SOMETIMES VOLATILE. 1:1 STTER REMAINS AT BEDSIDE. HEART RATE INCREASED INTO 60'S, LOW 70'S, AFEBRILE. LUNGS REMAIN CLEAR. PT HAS REMAINED ON RA FROM 1100 ON; SATS >90%.
--- NOTE | 2019-06-23 19:49 | NUR ---
SHIFT ASSESSMENT: ASSUMED CARE FROM TEDDY. PT GROGGY, BUT EASILY AROUSED. ABLE TO HAVE LUCCID APPROPRIATE CONVERSATION, BUT GETS AMPED UP QUICKLY AND STARTS YELLING AT ME. HE IS A BIT CONFUSED HAS FORGOTTEN SOME OF THE DAY TODAY. CAN'T FULLY REMEMBER WHY HE IS RESTRAINTS, PROMISES HE WON'T HURT ME OR HIMSLEF. I EXPLAINED THAT IF I AM TO TRUST HIM, HE HAS TO SHOW ME THAT HE WILL BEHAVE. PUPIL EQUAL AND REACTIVE AT 3MM BILAT. PT HAS A DIFFICULT TIME OPENING EYES FOR ME. STATES "THEY ARE SO HEAVY". LS CLEAR T/O WITH BIOX 96% ON RA. HEART SOUNDS S1 AND S2 AUSCULTATED WITH MONITOR SHOWING NSR WITH HR 66. SKIN PINK, WARM AND DRY, PPP BILAT AND STRONG. 18G IV R HAND S/L. PICC IN LAMAR WITH 3CM OUT. LEVOPHED AT 18.8CC/HR= 5MCG/MIN AND NS AT 175CC/HR. ABD R/O WITH BT X4. SALCIDO DRAINING CLEAR YELLOW URINE. PT IS 2MD HOLD WITH SITTER AT DOORWAY.
--- NOTE | 2019-06-23 22:09 | NUR ---
RESTRAINT REMOVAL: PT PLACED ON CPAP AND REQUESTED THAT HE HAVE HIS HANDS FREE TO ADJUST THE MASK IF NEEDED. PT FOLLOWING COMMANDS WITH INTERMITTENT BOUTS OF AGITATION. RESTRAINTS REMOVED. I EXPLAINED THAT IF HE TRIES TO GET OUT OF BED OR STARTS TO BECOME AGGRESSIVE THAT THEY WOULD BE PUT BACK ON. PT GAVE ME THE THUMBS UP AND STATED "OK"
[2019-06-24 03:30] LABS: BASOPHILS ABSOLUTE AUTO 0.05 K/mm3 (0.00-0.23); BASOPHILS PERCENT AUTO 1 % (0-2); EOSINOPHILS ABSOLUTE AUTO 0.09 K/mm3 (0.00-0.68); EOSINOPHILS PERCENT AUTO 1 % (0-6); Hematocrit 35.1 % (37.0-53.0); Hemoglobin 10.5 g/dL (13.5-17.5); IMMATURE GRAN ABSOLUTE AUTO 0.04 K/mm3 (0.00-0.10); IMMATURE GRAN PERCENT AUTO 0 % (0-1); LYMPHOCYTES ABSOLUTE AUTO 2.33 K/mm3 (0.84-5.20); LYMPHOCYTES PERCENT AUTO 21 % (21-46); MONOCYTES ABSOLUTE AUTO 0.73 K/mm3 (0.16-1.47); MONOCYTES PERCENT AUTO 7 % (4-13); Mean Corpuscular HGB 24.9 pg (26.0-34.0); Mean Corpuscular HGB Conc 29.9 g/dL (31.5-36.5); Mean Corpuscular Volume 83 fL (80-100); Mean Platelet Volume 9.7 fL (9.1-12.4); NEUTROPHILS ABSOLUTE AUTO 7.76 K/mm3 (1.96-9.15); NEUTROPHILS PERCENT AUTO 71 % (41-73); Platelet Count 305 K/mm3 (150-400); RDW Coefficient Variation 14.6 % (11.7-14.2); RDW Standard Deviation 44.5 fL (35.1-46.3); Red Blood Cell Count 4.22 M/mm3 (4.30-5.90)
[2019-06-24 03:43] LABS: Anion Gap 7 mmol/L (6-16); Blood Urea Nitrogen 10 mg/dL (8-24); Bun/Creatinine Ratio 8.3 (12.0-20.0); CO2, Blood 22 mmol/L (21-32); Calcium, Blood 8.4 mg/dL (8.5-10.1); Chloride, Blood 115 mmol/L (98-108); Glomerular Filtration Rate >60 (60-); Glucose, Blood 112 mg/dL (70-99); Magnesium, Blood 2.1 mg/dL (1.6-2.4); Phosphorus, Blood 3.9 mg/dL (2.5-4.9); Potassium, Blood 3.9 mmol/L (3.5-5.5); Sodium, Blood 144 mmol/L (136-145)
--- NOTE | 2019-06-24 06:55 | NUR ---
SHIFT SUMMARY: PT HAD BOUT OF AGITATION TO WHERE HE WOULD RAISE HIS VOICE AT ME BUT WOULD CALM DOWN AND APOLOGIZE ONCE I TOLD HIM I WAS TRYING TO HELP HIM. RESTRAINTS WERE REMOVED AT 2134 AND HE HAS BEEN APPROPRIATE. 2 ATTEMPTS TO HAVE BM'S AT BEDSIDE COMMODE WITHOUT SUCCESS. HIGH RISK SUICIDE WITH SITTER AT DOORWAY.
--- NOTE | 2019-06-24 09:54 | NUR ---
CARE ASSUMED ASSESSMENT COMPLETED, PT DROWSY BUT WAKES EASILY TO VOICE, ORIENTED X4, DENIES SI AT THIS TIME. SALCIDO REMOVED PER PT REQUEST. PT C/O ABD PAIN SECONDARY TO CONSTIPATION, BOWEL CARE MEDS ADMINISTERED, PT THEN HAD A SMALL SOFT BM AND A SMALL VOID POST SALCIDO REMOVAL. PT REMAINS OUT OF RESTRAINTS, IS COOPERATIVE, THOUGH INTERMITTENTLY IRRITABLE. HR 50'S SINUS, BP STABLE WITH LEVO 5MCG, WILL ATTEMPT TO TITRATE TODAY ABLE. SI PRECAUTIONS REMAIN IN PLACE, 1:1 MONITOR AT BEDSIDE.
--- NOTE | 2019-06-24 15:11 | NUR ---
UPDATE NETEZZA DEVELOPER IN TO SEE PATIENT EARLIER, PT WAS VERY ABRASIVE DURING VISIT, YELLING AND CURSING. PT CALMS QUICKLY AND GOES BACK TO SLEEP, REMAINS DROWSY BUT WAKES EASILY, SLEEPING WITH CPAP ON. PT HAD A SNACK WITHOUT DIFFICULTY, THEN ATE BITES OF LUNCH AND WENT BACK TO SLEEP. TITRATING LEVOPHED DOWN ABLE, WILL CONTINUE TO MONITOR. HIGH SUICIDE RISK PRECAUTIONS AND 1:[address]
--- NOTE | 2019-06-24 16:09 | NUR ---
UPDATE DR. IGLL IN TO SEE PATIENT, INFORMED PATIENT OF PLAN OF CARE FOR INPATIENT PSYCH, PT BECAME VERY EMOTIONAL, STATES HE NEEDS TO TAKE CARE OF HIS PERSONAL BELONGINGS AND CANNOT GO TO AN INPATIENT FACILITY, REQUESTING TO SPEAK WITH PATIENT ADVOCATE. PT ADVOCATE CALLED, MESSAGE LEFT. PT SITTING AT BEDSIDE CRYING, THIS RN IN TO SPEAK WITH PT, PT CALMED SLIGHTLY. REMAINS OUT OF RESTRAINTS, 1:1 MONITOR AT BEDSIDE.
--- NOTE | 2019-06-24 17:52 | NUR ---
UPDATE/END OF SHIFT DR. GILL IN TO ASSESS PATIENT, ORDERS FOR INPATIENT PSYCH FACILITY RECIEVED. PT AWARE OF PLAN, WAS CRYING D/T CONCERN THAT HE WAS SUPPOSED TO LEAVE TO GO TO [place] TOMORROW, DISCUSSED PLAN AND NECESSITY OF INPATIENT CARE WITH PATIENT, PT CALMED. PT REPORTS HE IS NOT SUICIDAL, THAT HE JUST WANTED TO SLEEP FOR THE ENTIRE WEEKEND UNTIL HE WAS ABLE TO GO TO [place]. CONTACTED PER PT REQUEST AND NOTIFIED OF PATIENT'S HOSPITAL ADMISSION AND PLAN OF CARE. PICC DRESSING CHANGED, PT ATE DINNER, IS NOW SLEEPING WITH BIPAP MASK ON. 1:[address], PT ON HIGH RISK SUICIDE PRECAUTIONS. LEVOPHED AT 2MCG, MAP LOW 60'S. WILL CONTINUE TO MONITOR AND REPORT TO ONCOMING SHIFT.
--- NOTE | 2019-06-24 20:00 | NUR ---
ASSUMED CARE NOTE: ASSUMED CARE OF PT AT 1900, RECEVIED REPORT FROM KHLOE PITTMAN. PT IS A/OX3. WHILE PERFORMING ASSESSMENT, PT BECAME AGITATED AND CONFRONTATIONAL. PT STOOD UP AND SCREAMED " I CAN GO PEE AND STAND UP IF I WANT TO ON MY OWN" PT WAS REMINDED OF ACCEPTABLE CONDUCT TO STAFF, PT THEN APOLOGIZED AND BEGAN TO CRY. PT STATES HE IS SAD AND DISAPPOINTED HIS LEFT HIM. THIS NURSE SAT AND SPOKE TO PATIENT REGARDING THE ISSUE. PT IS ON RA, LUNG SOUNDS CLEAR. PT IN SINUS WITH HR IN THE 80'S, 60'S WHILE SLEEPING. PT IS ON LEVOPHED 3MCG/MIN FOR LOW BP. PT HAD AN INCONTINENT BM, THAT WAS LIQUID. COLACE HELD. WILL CONTINUE TO MONITOR PT T/O SHIFT.
--- NOTE | 2019-06-25 05:51 | NUR ---
SHIFT SUMMARY: SEE PREVIOUS NOTES. TREVON HAS BEEN ON SBA SINCE 0100. VITALS SATBLE MAP ABOVE 60. BP INCREASES WHEN PT IS AWAKE, OR WHEN PT IS DOING ACTIVITY. PT HAS BEEN COOPERATIVE, AND REMAIND CALM. PT ASKED TO NOT BE AWAKENED EVERY TWO HOURS. HE WISHES TO BE ON ANOTHER UNIT, SO HE CAN USE THE PHONE MORE OFTEN. PT WAS REMINDED THAT STAFF WILL CONTINUE TO OBSERVE 1:1 SUPERVISION. PT HAS BEEN GETTING UP TO USE BEDSIDE TOILET WITH SBA. PT HAS A STEADY GAIT. WILL CONTINUE TO MONITOR PT UNTIL REPORT IS GIVEN TO ONCOMING SHIFT.
--- NOTE | 2019-06-25 07:11 | NUR ---
Received report from Irma PITTMAN. Patient laying in bed awake and able to communicate his needs. He was pleasant and cooperative with his care. He is on RA and sats mid 90%'s. He remains slightly, systolic upper 90"s and MAP 58, will re-evaluate. Has 18ga RH dressing intact and site WNL's. He also has PICC line to LAMAR, dressing intact and site WNL and is infusing NS at 75ml/hr and Levophed currently remains off. HUSSAIN. He has one to one sitter. Has urinal at bedside.
--- NOTE | 2019-06-25 10:21 | NUR ---
Patient is currently resting on CPAP 10-20 and sats mid 90%'s. [facility] health was in room with patient and he was very frustrated and yelling at times, this lasted about 30 minutes and went in room after she left and he was very calm and appropriate with communication and care and asked for me to call daughter and get some things from his apartment. Systolic remains 90-100's and HR 60's. Poison control called and stated case closed. Awaiting report from [facility] that will be taking him.
--- NOTE | 2019-06-25 11:08 | NUR ---
Interviewed patient at 0815 today. He presented as irritable and angry. He spoke loudly at times and would speak dramaticly, and make sarcastic remarks about this tech writer and doctors. He complained loudly that no on gave a " a shit" about him. He reported that the meds he was given by Dr. Meeks from his last admit "didnt work and they made me feel funny". He noted "all I wanted to do Monday night was to get some sleep"; "I even called 911 myself". "All I need to do is go to [place] like I planned tonight". He finally calmed and was able to speak about his upset with his , Kaia. "She is living in [place] with a yudi, and all I want is closure with her vefore I leave [place]". He reports taking 3 Seroquel on Monday night to try and get sleep. His plans include mvoing to [place] which is "home". He reports his friends have a place for him to stay and a job. Brief counseling interventions brought him to tears at times, regarding his rejection and hurt feelings from his of 20+ years. His adult son and daughter are getting his personal items from his apartment to keep for him until he leaves town. His daughter Clovis was called by Nurse to remind her to get several items he had forgotten to tell her about. Patient is heavily tattooed, very short haircut. He is well spoken when he calmed, and repeately talked about his and her not willing to listen to him "to gain closure with her before I leave". He reports he did not have intention of killing himself. This is 2nd interview with this patient--he was in ICU before for OD. The issue at that time was also the releationship with his . 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 He did not ngage in Suicide Safety Plan at this time. Will revisit later today to complete if he is willing.
--- NOTE | 2019-06-25 12:23 | NUR ---
Patient has been resting and when he awoke I called patient advocate to come see. She was at bedside and he got frustrated as she did not sit to talk with him. He stated to go have a seat and she said she was fine and started being rude and yelling abnd I asked her to leave until he could speak respectful. Systolic stll 90's and SB/SR in the 60's. He remains on RA and sats mid 90%'s. [facility] came by and he was very nice to her and they had short conversation and she left. He is currently resting.
--- NOTE | 2019-06-25 16:20 | NUR ---
Patient has been resting off and on. Dr Frankel by around 1500 and had brief conversation. He shortly calmed down after a few minutes. I sat and talked with him for about another [address] Mercado currently in room talking with patient. VSS See EMR, systolic 118, HR 60's and 98% RA. We are arranging for secure transport for going to [facility]. [facility]work fax[facility] to [email or web address].
--- NOTE | 2019-06-25 19:06 | NUR ---
[facility] arrived (Shawn) and gave brief report. He was placed in wheel chair and transported to secure vehicle with two security employee's. Called Chely at [facility] and advised her of start transport time. Patient had shower prior to leaving and gave him hospital cloths as his personal cloths smelt sour. Just prior to leaving he placed his cloths back on fdor comfort. Patient went cooperatively.
== END 2019-06-25 19:00 | DRG 918 ==
LOC: ER 05:36 → ICUE 07:16 → ICUW 07:16 → ICUE 07:33
PROVIDERS: Emergency Medicine; ADMIT Family Medicine
DX: T44.7X2A Poisoning by beta-adrenoreceptor antagonists, intentional self-harm, initial encounter (principal); F33.3 Major depressive disorder, recurrent, severe with psychotic symptoms; T43.592A Poisoning by other antipsychotics and neuroleptics, intentional self-harm, initial encounter; Y92.9 Unspecified place or not applicable; F90.9 Attention-deficit hyperactivity disorder, unspecified type; F41.8 Other specified anxiety disorders; F17.290 Nicotine dependence, other tobacco product, uncomplicated; R33.9 Retention of urine, unspecified; I95.9 Hypotension, unspecified; F15.10 Other stimulant abuse, uncomplicated; R45.1 Restlessness and agitation
CPT/HCPCS: 36569; 51702; 80048; 80053; 81003; 83735; 84100; 84443; 85025; 93005; 93010; 94660; 96361; 96374; 99285-25; C1751; G0480; J1650; J2310; J7030; J7060

== ENCOUNTER 2022-07-19 10:18 | Emergency (ER) | payer OTHER ==
[~2022-07-19] VITALS: Ht 175.3 cm; Wt 115.7 kg
[~2022-07-19 10:18] MED LIST changes: +CHLO25B PO; +GABA300 PO; +LISI20 PO
[2022-07-19 10:31] VITALS: BP 150/102
== END 2022-07-19 12:00 | disposition home or self-care (01) ==
LOC: ER 10:18
DX: M79.671 Pain in right foot (principal); M79.672 Pain in left foot; I10 Essential (primary) hypertension; F17.210 Nicotine dependence, cigarettes, uncomplicated; Z79.899 Other long term (current) drug therapy; Z88.8 Allergy status to other drugs, medicaments and biological substances
CPT/HCPCS: 99283

== ENCOUNTER 2022-10-09 08:52 | Emergency (ER) | payer OTHER ==
[~2022-10-09] VITALS: Ht 175.3 cm; Wt 113.4 kg
[2022-10-09 09:49] VITALS: BP 156/112
[2022-10-09] MEDS ORDERED: METPRE4DP PO (10:16)
[2022-10-09] MEDS ORDERED: CELE100 PO (10:16)
== END 2022-10-09 11:02 | disposition home or self-care (01) ==
LOC: ER 08:52
DX: M54.16 Radiculopathy, lumbar region (principal); I10 Essential (primary) hypertension; F17.200 Nicotine dependence, unspecified, uncomplicated
CPT/HCPCS: 99283; J1100